=== PATIENT | female | born 1950 | race Caucasian/White ===

== ENCOUNTER 2017-12-10 05:31 | Observation (INO) | payer MEDICARE, OTHER ==
[~2017-12-10] VITALS: Ht 162.6 cm; Wt 99.5 kg
[~2017-12-10 05:31] MED LIST: ACET1TAB12 PO; BACL10TA PO; BUSP10TA3 PO; CeFAZolin 2 GM/DEXTROSE 0 ML IV ONE; DORZ1DRO5 OP; LISI-660 PO; LORA1TAB3 PO; METF500T7 PO; NPH,100V11 SQ; OLAN5TAB40 PO; PARO10TA71 PO; QUET25TA PO; RINGERS SOLUTION,LACTATED 1,000 ML IV ONE; SIMV-259 PO; TRAVZOS OP; TRIL4 PO; ZOLP5 PO
[2017-12-10 06:25] LABS: BASOPHILS % (AUTO) 0.5 % (0.0-2.0); EOSINOPHILS % (AUTO) 1.3 % (1.0-6.0); HEMATOCRIT 29.7 % (36-46); HEMOGLOBIN 10.1 g/dL (12.0-16.0); LYMPHOCYTES # (AUTO) 2.7 K/uL (1.0-4.8); LYMPHOCYTES % (AUTO) 32.7 % (22.0-44.0); MEAN CORPUSCULAR HEMOGLOBIN 31.8 pg (26.0-34.0); MEAN CORPUSCULAR HGB CONC 33.9 G/dL (31.0-37.0); MEAN CORPUSCULAR VOLUME 94 fL (80-100); MONOCYTES # (AUTO) 0.8 K/uL (0.1-1.0); MONOCYTES % (AUTO) 9.4 % (2.0-9.0); NEUTROPHILS # (AUTO) 4.6 K/uL (1.8-7.7); NEUTROPHILS % (AUTO) 56.1 % (40.0-70.0); PLATELET COUNT (AUTO) 230 K/uL (150-450); RED BLOOD CELL COUNT(AUTO) 3.18 MIL/uL (4.00-5.20); RED CELL DISTRIBUTION WIDTH 13.4 % (11.5-14.5)
[2017-12-10 06:35] LABS: ANION GAP 9 mmol/L (8-16); CALCIUM, TOTAL 8.4 mg/dL (8.8-10.5); CARBON DIOXIDE 31 mmol/L (22-29); CHLORIDE 104 mmol/L (98-107); CREATININE 0.65 mg/dL (0.60-1.30); GLOMERULAR FILTR. RATE CALC > 60 mL/min (>60); GLUCOSE,RANDOM 146 mg/dL (70-110); POTASSIUM 3.4 mmol/L (3.5-5.1); SODIUM SERUM 144 mmol/L (136-145); UREA NITROGEN, BLOOD 14 mg/dL (7-18)
[2017-12-10 06:37] LABS: PROTHROMBIN TIME 10.7 SEC (9.4-11.6)
[2017-12-10] MEDS ORDERED: GELATIN SPONGE,ABSORBABLE 50 MM TP ONE (06:41)
[2017-12-10] MEDS ORDERED: BUPIVACAINE HCL/PF 0.5% 30 ML VIAL ONE (06:41)
[2017-12-10] MEDS ORDERED: MUPIROCIN CALCIUM 2% 22 GM OINTMENT ONE (06:41)
[2017-12-10] MEDS ORDERED: VANCOMYCIN HCL 1 GM/VIAL ONE (06:41)
[2017-12-10] MEDS ORDERED: SODIUM CHLORIDE 0.9% IRRIG BAG 1,000 ML IRRIG ONE (06:42)
[2017-12-10] MEDS ORDERED: THROMBIN, BOVINE 20000 UNITS/VIAL POWDER TP ONE (06:42)
[2017-12-10] MEDS ORDERED: MICROFIBRILLAR COLLAGEN 1 GM PACKAGE TP ONE (06:42)
[2017-12-10] MEDS ORDERED: GUM MASTIC/STORAX/MSAL/ALCOHOL LIQUID 0.67 ML VIAL TP ONE (06:43)
[2017-12-10] MEDS ORDERED: RINGERS SOLUTION,LACTATED 1,000 ML IV ONE (06:45)
[2017-12-10] MEDS ORDERED: CeFAZolin 2 GM/DEXTROSE 50 ML IV ONE (06:45)
[2017-12-10] MEDS ORDERED: ACETAMINOPHEN 1000 MG/ISO-OSM 100 ML IV ONE ×2 (06:58→10:24)
[2017-12-10] MEDS ORDERED: BUPIVACAINE LIPOSOME/PF 1.3%-13.3MG/ML SUSPENSION 20 ML VIAL INJ ONE (07:00)
[2017-12-10] MEDS ORDERED: MEPERIDINE-PF 25 MG/ML SYRINGE IVP PRN (08:30)
[2017-12-10] MEDS: ACETAMINOPHEN 1000 MG/ISO-OSM 100 ML IV SCH ×3 (08:30→20:43)
[2017-12-10] MEDS ORDERED: FentaNYL CITRATE-PF 100 MCG/2 ML VIAL IVP PRN (08:30)
[2017-12-10] MEDS ORDERED: ONDANSETRON HCL 4 MG/2 ML VIAL IVP PRN (08:30)
[2017-12-10] MEDS: CYCLOBENZAPRINE HCL 10 MG TABLET PO SCH ×2 (09:00→21:10)
[2017-12-10] MEDS ORDERED: ALBUMIN HUMAN 25%-12.5GM/50ML 50 ML ONE (09:06)
[2017-12-10] MEDS: HYDROmorphone 2 MG/ML SYRINGE IVP PRN ×5 (10:20→18:33)
[2017-12-10 11:45] VITALS: BP 144/66
[2017-12-10] MEDS ORDERED: LORazepam 1 MG TABLET PO PRN (11:45)
[2017-12-10] MEDS ORDERED: 0.9% SODIUM CHLORIDE 10 ML VIAL IVP ONE (12:00)
[2017-12-10] MEDS ORDERED: FentaNYL CITRATE-PF 100 MCG/2 ML VIAL IVP ONE (12:00)
[2017-12-10] MEDS ORDERED: PHENYLEPHRINE HCL 10 MG/ML VIAL IVP ONE (12:00)
[2017-12-10] MEDS ORDERED: LIDOCAINE HCL/PF 2% 5 ML VIAL INJ ONE (12:00)
[2017-12-10] MEDS ORDERED: ROCURONIUM BROMIDE 10 MG/ML 5 ML VIAL IVP ONE (12:00)
[2017-12-10] MEDS ORDERED: MIDAZOLAM HCL 2 MG/2 ML VIAL IVP ONE (12:00)
[2017-12-10] MEDS ORDERED: NEOSTIGMINE METHYLSULFATE 1 MG/ML 10 ML VIAL IVP ONE (12:00)
[2017-12-10] MEDS ORDERED: PROPOFOL 1% 20 ML VIAL IVP ONE (12:00)
[2017-12-10] MEDS ORDERED: ONDANSETRON HCL 4 MG/2 ML VIAL IVP ONE (12:00)
[2017-12-10] MEDS ORDERED: GLYCOPYRROLATE 0.2 MG/ML VIAL IM ONE (12:00)
[2017-12-10] MEDS ORDERED: POTASSIUM CHLORIDE 20 MEQ ER TABLET PO PRN (12:30)
[2017-12-10] MEDS ORDERED: POTASSIUM CHL 10 MEQ/WATER 50 ML IV PRN (12:30)
[2017-12-10] MEDS ORDERED: SODIUM CHLORIDE 0.9% 500 ML IV ONE ×2 (14:18→14:21)
[2017-12-10] MEDS ORDERED: CeFAZolin 1 GM/DEXTROSE 50 ML IV SCH (15:30)
[2017-12-10] MEDS ORDERED: DORZOLAMIDE/TIMOLOL/PF 2-0.5% [22.3-6.8MG/ML] 0.2 ML OPHTHALMIC SOLUTION OU SCH (16:00)
[2017-12-10 16:18] VITALS: BP 130/54
[2017-12-10] MEDS: BACLOFEN 10 MG TABLET PO SCH ×2 (16:31→20:44)
[2017-12-10] MEDS: CeFAZolin SODIUM 1 GM in DEXTROSE 5%-WATER 10 ML IV SCH ×2 (16:31→23:42)
[2017-12-10] MEDS: BusPIRone HCL 10 MG TABLET PO SCH ×2 (16:31→20:44)
[2017-12-10 19:00] VITALS: BP 120/77
[2017-12-10] MEDS ORDERED: OXYGEN THERAPY IH SCH (20:00)
[2017-12-10] MEDS ORDERED: ZOLPIDEM TARTRATE 10 MG TABLET PO SCH (21:00)
[2017-12-10] MEDS ORDERED: SIMVASTATIN 20 MG TABLET PO SCH (21:00)
[2017-12-10] MEDS ORDERED: TRAVOPROST-Z 0.004% 2.5 ML OPHTHALMIC SOLUTION OU SCH (21:00)
[2017-12-10] MEDS ORDERED: OLANZapine 5 MG RAPDIS TABLET PO SCH (21:00)
[2017-12-10] MEDS ORDERED: QUEtiapine FUMARATE 25 MG TABLET PO SCH (21:00)
[2017-12-11] VITALS: BP 143/77
[2017-12-11] MEDS: ACETAMINOPHEN 1000 MG/ISO-OSM 100 ML IV SCH (03:39)
[2017-12-11 05:00] VITALS: BP 146/74
[2017-12-11 06:22] LABS: BASOPHILS % (AUTO) 0.1 % (0.0-2.0); EOSINOPHILS % (AUTO) 1.1 % (1.0-6.0); HEMATOCRIT 29.2 % (36-46); HEMOGLOBIN 9.9 g/dL (12.0-16.0); LYMPHOCYTES # (AUTO) 1.1 K/uL (1.0-4.8); LYMPHOCYTES % (AUTO) 14.6 % (22.0-44.0); MEAN CORPUSCULAR HEMOGLOBIN 31.9 pg (26.0-34.0); MEAN CORPUSCULAR HGB CONC 33.7 G/dL (31.0-37.0); MEAN CORPUSCULAR VOLUME 95 fL (80-100); MONOCYTES # (AUTO) 0.8 K/uL (0.1-1.0); MONOCYTES % (AUTO) 11.6 % (2.0-9.0); NEUTROPHILS # (AUTO) 5.3 K/uL (1.8-7.7); NEUTROPHILS % (AUTO) 72.6 % (40.0-70.0); PLATELET COUNT (AUTO) 199 K/uL (150-450); RED BLOOD CELL COUNT(AUTO) 3.08 MIL/uL (4.00-5.20); RED CELL DISTRIBUTION WIDTH 13.9 % (11.5-14.5)
[2017-12-11] MEDS ORDERED: PANTOPRAZOLE SODIUM 40 MG DR TABLET PO SCH (06:30)
[2017-12-11 07:21] LABS: CALCIUM, TOTAL 8.1 mg/dL (8.8-10.5); CREATININE 0.63 mg/dL (0.60-1.30); GLOMERULAR FILTR. RATE CALC > 60 mL/min (>60); GLUCOSE,RANDOM 200 mg/dL (70-110); UREA NITROGEN, BLOOD 13 mg/dL (7-18)
[2017-12-11 07:40] LABS: ANION GAP 10 mmol/L (8-16); CARBON DIOXIDE 29 mmol/L (22-29); CHLORIDE 104 mmol/L (98-107); POTASSIUM 3.9 mmol/L (3.5-5.1); SODIUM SERUM 143 mmol/L (136-145)
[2017-12-11 07:49] VITALS: BP 140/81
[2017-12-11] MEDS ORDERED: MetFORMIN HCL 500 MG ER TABLET PO SCH (08:00)
[2017-12-11] MEDS: BusPIRone HCL 10 MG TABLET PO SCH (08:58)
[2017-12-11] MEDS: BACLOFEN 10 MG TABLET PO SCH (08:59)
[2017-12-11] MEDS: CYCLOBENZAPRINE HCL 10 MG TABLET PO SCH (08:59)
[2017-12-11] MEDS ORDERED: PARoxetine HCL 20 MG TABLET PO SCH (09:00)
[2017-12-11] MEDS ORDERED: OxyCODONE HCL/ACETAMINOPHEN 5-325 MG TABLET PO PRN (09:00)
[2017-12-11] MEDS ORDERED: LISINOPRIL 5 MG TABLET PO SCH (09:00)
[2017-12-11 11:06] VITALS: BP 128/59
== END 2017-12-11 11:45 | disposition home or self-care (01) ==
LOC: SURGERY 05:31 → 4E 05:32
PROVIDERS: ADMIT Orthopaedic Surgery; ATTEND Orthopaedic Surgery
DX: S42.201A Unspecified fracture of upper end of right humerus, initial encounter for closed fracture (principal); S43.001A Unspecified subluxation of right shoulder joint, initial encounter; M75.101 Unspecified rotator cuff tear or rupture of right shoulder, not specified as traumatic; M25.011 Hemarthrosis, right shoulder; K21.9 Gastro-esophageal reflux disease without esophagitis; I10 Essential (primary) hypertension; E78.5 Hyperlipidemia, unspecified; E11.9 Type 2 diabetes mellitus without complications; D64.9 Anemia, unspecified; Z90.49 Acquired absence of other specified parts of digestive tract; W19.XXXA Unspecified fall, initial encounter; Y93.89 Activity, other specified; Y92.89 Other specified places as the place of occurrence of the external cause; Y99.8 Other external cause status
CPT/HCPCS: 23040; 23410; 23615; 23660; 24495; 36415 ×2; 71045; 73030; 80048 ×2; 85025 ×2; 85610; 85730; 93005; 96374; 96375; 96376 ×2; 97167; C1713 ×3; C9290; G0378 ×2; G8984; G8985; J0131 ×2; J0690 ×2; J1170; J2250; J2370; J2405; J2704; J3010; J3370; J3490 ×4; J7040; J7060; J7120; P9047

== ENCOUNTER 2017-12-26 07:22 | Inpatient (IN) | payer MEDICARE, OTHER ==
[~2017-12-26] VITALS: Ht 162.6 cm; Wt 91.9 kg
[~2017-12-26 07:22] MED LIST changes: -CeFAZolin 2 GM/DEXTROSE 0 ML IV ONE; -NPH,100V11 SQ; -RINGERS SOLUTION,LACTATED 1,000 ML IV ONE
[2017-12-26 07:48] LABS: GLUCOSE,POINT OF CARE 202 MG/DL (70-110)
[2017-12-26] MEDS ORDERED: MUPIROCIN CALCIUM 2% 22 GM OINTMENT TP ONE (08:15)
[2017-12-26] MEDS ORDERED: ZINC OXIDE 20% 30 GM OINTMENT TP ONE (08:15)
[2017-12-26] MEDS ORDERED: ONDANSETRON HCL 4 MG/2 ML VIAL IVP ONE (08:30)
[2017-12-26] MEDS ORDERED: MORPHINE SULFATE 4 MG/ML SYRINGE IVP ONE (08:30)
[2017-12-26 09:14] LABS: BASOPHILS % (AUTO) 0.5 % (0.0-2.0); EOSINOPHILS % (AUTO) 0.1 % (1.0-6.0); HEMATOCRIT 27.4 % (36-46); HEMOGLOBIN 9.1 g/dL (12.0-16.0); LYMPHOCYTES # (AUTO) 1.6 K/uL (1.0-4.8); LYMPHOCYTES % (AUTO) 32.3 % (22.0-44.0); MEAN CORPUSCULAR HEMOGLOBIN 30.6 pg (26.0-34.0); MEAN CORPUSCULAR HGB CONC 33.3 G/dL (31.0-37.0); MEAN CORPUSCULAR VOLUME 92 fL (80-100); MONOCYTES % (AUTO) 19.5 % (2.0-9.0); NEUTROPHILS # (AUTO) 2.4 K/uL (1.8-7.7); NEUTROPHILS % (AUTO) 47.6 % (40.0-70.0); PLATELET COUNT (AUTO) 270 K/uL (150-450); RED BLOOD CELL COUNT(AUTO) 2.99 MIL/uL (4.00-5.20); RED CELL DISTRIBUTION WIDTH 14.4 % (11.5-14.5)
[2017-12-26 09:31] LABS: ANION GAP 10 mmol/L (8-16); CALCIUM, TOTAL 7.4 mg/dL (8.8-10.5); CARBON DIOXIDE 28 mmol/L (22-29); CHLORIDE 105 mmol/L (98-107); CREATININE 0.73 mg/dL (0.60-1.30); GLOMERULAR FILTR. RATE CALC > 60 mL/min (>60); POTASSIUM 3.6 mmol/L (3.5-5.1); SODIUM SERUM 143 mmol/L (136-145); UREA NITROGEN, BLOOD 12 mg/dL (7-18)
[2017-12-26 09:35] LABS: B-TYPE NATRIURETIC PEPTIDE 73 pg/mL (0-100)
[2017-12-26 10:03] LABS: ALANINE AMINOTRANSFERASE 9 U/L (12-78); ALBUMIN 2.2 g/dL (3.4-5.0); ALKALINE PHOSPHATASE 105 U/L (46-116); ASPARTATE AMINOTRANSFERASE 14 U/L (15-37); BILIRUBIN,TOTAL 0.3 mg/dL (0.1-1.0); CREATINE KINASE MB 0.5 ng/mL (0-5); CREATINE KINASE, TOTAL 148 U/L (26-192); GLUCOSE,RANDOM 203 mg/dL (70-110)
[2017-12-26] MEDS ORDERED: ACETAMINOPHEN 325 MG TABLET PO PRN (12:30)
[2017-12-26] MEDS ORDERED: MAGNESIUM HYDROXIDE SUSPENSION 30 ML UDCUP PO PRN (12:30)
[2017-12-26] MEDS ORDERED: DEXTROSE 50%-WATER 25 GM/50 ML SYRINGE IVP PRN (12:45)
[2017-12-26] MEDS ORDERED: FLUCONAZOLE 100 MG TABLET PO SCH (13:00)
[2017-12-26] MEDS: HEPARIN SODIUM,PORCINE 5,000 UNITS/ML VIAL SQ SCH (16:00)
[2017-12-26 16:38] VITALS: BP 116/60
[2017-12-26 18:43] LABS: GLUCOMETER DEV NAME(LOC) 6N 1E; GLUCOSE,POINT OF CARE 114 MG/DL (70-110)
[2017-12-26 19:41] VITALS: BP 138/60
[2017-12-26] MEDS: OxyCODONE HCL/ACETAMINOPHEN 5-325 MG TABLET PO PRN (20:22)
[2017-12-26] MEDS: DOCUSATE SODIUM 100 MG CAPSULE PO SCH ×2 (20:22→21:00)
[2017-12-26] MEDS: INSULIN ASPART 100 UNITS/ML SQ PRN (20:26)
[2017-12-26 22:03] LABS: GLUCOMETER DEV NAME(LOC) 6N 1E; GLUCOSE,POINT OF CARE 252 MG/DL (70-110)
[2017-12-26 23:36] VITALS: BP 126/54
[2017-12-27] MEDS: HEPARIN SODIUM,PORCINE 5,000 UNITS/ML VIAL SQ SCH ×3 (00:33→16:16)
[2017-12-27] MEDS: OxyCODONE HCL/ACETAMINOPHEN 5-325 MG TABLET PO PRN ×3 (00:39→20:25)
[2017-12-27 05:22] VITALS: BP 130/51
[2017-12-27 06:08] LABS: GLUCOMETER DEV NAME(LOC) 6N 1E; GLUCOSE,POINT OF CARE 113 MG/DL (70-110)
[2017-12-27 07:37] VITALS: BP 142/51
[2017-12-27] MEDS: DOCUSATE SODIUM 100 MG CAPSULE PO SCH ×2 (09:00→20:25)
[2017-12-27] MEDS: PANTOPRAZOLE SODIUM 40 MG DR TABLET PO SCH (09:24)
[2017-12-27 11:08] VITALS: BP 138/56
[2017-12-27] MEDS: INSULIN ASPART 100 UNITS/ML SQ PRN ×3 (12:24→20:26)
[2017-12-27 13:22] LABS: GLUCOMETER DEV NAME(LOC) 6N 2D; GLUCOSE,POINT OF CARE 283 MG/DL (70-110)
[2017-12-27 16:17] VITALS: BP 117/63
[2017-12-27 19:23] LABS: GLUCOMETER DEV NAME(LOC) 6N 1E; GLUCOSE,POINT OF CARE 174 MG/DL (70-110)
[2017-12-27 20:00] VITALS: BP 137/54
[2017-12-27] MEDS: TRAVOPROST-Z 0.004% 2.5 ML OPHTHALMIC SOLUTION OU SCH (22:58)
[2017-12-27 23:22] VITALS: BP 134/53
[2017-12-28] MEDS: HEPARIN SODIUM,PORCINE 5,000 UNITS/ML VIAL SQ SCH ×3 (00:18→15:05)
[2017-12-28] MEDS: OxyCODONE HCL/ACETAMINOPHEN 5-325 MG TABLET PO PRN ×5 (00:27→20:48)
[2017-12-28 00:43] LABS: GLUCOMETER DEV NAME(LOC) 6N 2D; GLUCOSE,POINT OF CARE 193 MG/DL (70-110)
[2017-12-28 04:55] VITALS: BP 137/89
[2017-12-28 06:38] LABS: GLUCOMETER DEV NAME(LOC) 6N 2D; GLUCOSE,POINT OF CARE 113 MG/DL (70-110)
[2017-12-28 07:20] VITALS: BP 146/69
[2017-12-28 07:47] LABS: BASOPHILS % (AUTO) 0.7 % (0.0-2.0); EOSINOPHILS % (AUTO) 1.3 % (1.0-6.0); HEMATOCRIT 28.1 % (36-46); HEMOGLOBIN 9.3 g/dL (12.0-16.0); LYMPHOCYTES % (AUTO) 37.8 % (22.0-44.0); MEAN CORPUSCULAR HEMOGLOBIN 30.1 pg (26.0-34.0); MEAN CORPUSCULAR VOLUME 91 fL (80-100); MONOCYTES # (AUTO) 0.8 K/uL (0.1-1.0); MONOCYTES % (AUTO) 15.6 % (2.0-9.0); NEUTROPHILS # (AUTO) 2.3 K/uL (1.8-7.7); NEUTROPHILS % (AUTO) 44.6 % (40.0-70.0); PLATELET COUNT (AUTO) 262 K/uL (150-450); RED BLOOD CELL COUNT(AUTO) 3.08 MIL/uL (4.00-5.20); RED CELL DISTRIBUTION WIDTH 14.3 % (11.5-14.5)
[2017-12-28 07:57] LABS: ANION GAP 9 mmol/L (8-16); CALCIUM, TOTAL 7.5 mg/dL (8.8-10.5); CARBON DIOXIDE 28 mmol/L (22-29); CHLORIDE 103 mmol/L (98-107); CREATININE 0.56 mg/dL (0.60-1.30); GLOMERULAR FILTR. RATE CALC > 60 mL/min (>60); GLUCOSE,RANDOM 131 mg/dL (70-110); POTASSIUM 3.3 mmol/L (3.5-5.1); SODIUM SERUM 140 mmol/L (136-145); UREA NITROGEN, BLOOD 8 mg/dL (7-18)
[2017-12-28] MEDS: PANTOPRAZOLE SODIUM 40 MG DR TABLET PO SCH (08:13)
[2017-12-28] MEDS: DOCUSATE SODIUM 100 MG CAPSULE PO SCH ×2 (08:13→20:48)
[2017-12-28] MEDS: INSULIN ASPART 100 UNITS/ML SQ PRN ×3 (11:29→21:46)
[2017-12-28 11:43] LABS: GLUCOMETER DEV NAME(LOC) 6N 2D; GLUCOSE,POINT OF CARE 196 MG/DL (70-110)
[2017-12-28 11:44] VITALS: BP 151/65
[2017-12-28] MEDS ORDERED: POTASSIUM CHLORIDE 20 MEQ ER TABLET PO ONE (13:30)
[2017-12-28 15:22] VITALS: BP 150/65
[2017-12-28 17:18] LABS: GLUCOMETER DEV NAME(LOC) 6N 1E; GLUCOSE,POINT OF CARE 152 MG/DL (70-110)
[2017-12-28 19:36] VITALS: BP 125/59
[2017-12-28] MEDS: TRAVOPROST-Z 0.004% 2.5 ML OPHTHALMIC SOLUTION OU SCH (20:48)
[2017-12-28 23:50] VITALS: BP 128/65
[2017-12-29 00:33] LABS: GLUCOMETER DEV NAME(LOC) 6N 1E; GLUCOSE,POINT OF CARE 238 MG/DL (70-110)
[2017-12-29] MEDS: HEPARIN SODIUM,PORCINE 5,000 UNITS/ML VIAL SQ SCH ×4 (00:57→23:21)
[2017-12-29 04:52] VITALS: BP 155/68
[2017-12-29] MEDS: INSULIN ASPART 100 UNITS/ML SQ PRN ×4 (06:45→21:07)
[2017-12-29 07:08] VITALS: BP 153/75
[2017-12-29 07:23] LABS: GLUCOMETER DEV NAME(LOC) 6N 1E; GLUCOSE,POINT OF CARE 163 MG/DL (70-110)
[2017-12-29] MEDS: PANTOPRAZOLE SODIUM 40 MG DR TABLET PO SCH (08:42)
[2017-12-29] MEDS: DOCUSATE SODIUM 100 MG CAPSULE PO SCH ×2 (08:43→20:34)
[2017-12-29] MEDS: OxyCODONE HCL/ACETAMINOPHEN 5-325 MG TABLET PO PRN ×4 (08:47→20:40)
[2017-12-29 11:23] LABS: GLUCOMETER DEV NAME(LOC) 6N 1E; GLUCOSE,POINT OF CARE 195 MG/DL (70-110)
[2017-12-29 11:34] VITALS: BP 130/47
[2017-12-29 15:46] VITALS: BP 129/75
[2017-12-29 17:43] LABS: GLUCOMETER DEV NAME(LOC) 6N 1E; GLUCOSE,POINT OF CARE 169 MG/DL (70-110)
[2017-12-29 19:30] VITALS: BP 148/79
[2017-12-29] MEDS: TRAVOPROST-Z 0.004% 2.5 ML OPHTHALMIC SOLUTION OU SCH (20:35)
[2017-12-29 21:08] LABS: GLUCOMETER DEV NAME(LOC) 6N 1E; GLUCOSE,POINT OF CARE 202 MG/DL (70-110)
[2017-12-29 23:27] VITALS: BP 153/63
[2017-12-30 05:17] VITALS: BP 155/79
[2017-12-30 06:34] LABS: GLUCOMETER DEV NAME(LOC) 6N 2D; GLUCOSE,POINT OF CARE 137 MG/DL (70-110)
[2017-12-30 07:30] VITALS: BP 162/97
[2017-12-30] MEDS: HEPARIN SODIUM,PORCINE 5,000 UNITS/ML VIAL SQ SCH ×2 (09:54→16:00)
[2017-12-30] MEDS: PANTOPRAZOLE SODIUM 40 MG DR TABLET PO SCH (09:55)
[2017-12-30] MEDS: DOCUSATE SODIUM 100 MG CAPSULE PO SCH (09:55)
[2017-12-30] MEDS: OxyCODONE HCL/ACETAMINOPHEN 5-325 MG TABLET PO PRN (09:55)
[2017-12-30] MEDS: INSULIN ASPART 100 UNITS/ML SQ PRN ×2 (11:51→17:29)
[2017-12-30 15:31] VITALS: BP 150/80
[2017-12-30 19:42] LABS: GLUCOMETER DEV NAME(LOC) 6N 2D; GLUCOSE,POINT OF CARE 233 MG/DL (70-110)
[2017-12-30 19:42] LABS: GLUCOMETER DEV NAME(LOC) 6N 2D; GLUCOSE,POINT OF CARE 229 MG/DL (70-110)
== END 2017-12-30 17:40 | disposition home or self-care (01) | DRG 596 ==
LOC: EMS 07:26 → 5S 14:20 → UNDOADMIN 14:20 → 6N 15:23
PROVIDERS: ADMIT Internal Medicine; ATTEND Internal Medicine
PROC: 0HB7XZX Excision of Abdomen Skin, External Approach, Diagnostic (ICD-10-PCS; principal; 2017-12-26)
DX: L51.9 Erythema multiforme, unspecified (principal); E11.9 Type 2 diabetes mellitus without complications; L27.0 Generalized skin eruption due to drugs and medicaments taken internally; E66.9 Obesity, unspecified; I10 Essential (primary) hypertension; Z83.3 Family history of diabetes mellitus; Z88.2 Allergy status to sulfonamides; Z68.34 Body mass index [BMI] 34.0-34.9, adult; T37.0X5A Adverse effect of sulfonamides, initial encounter
CPT/HCPCS: 82784; 82962; 87081; 88305; 88331; 93005; 96374; 96375; 97110; 97116; 97162; 97165; 97530; 97535; 99285; J1644; J2270; J2405

== ENCOUNTER 2018-02-16 07:14 | Emergency (ER) | payer MEDICARE, OTHER ==
[~2018-02-16] VITALS: Ht 162.6 cm; Wt 86.4 kg
[~2018-02-16 07:14] MED LIST changes: -BACL10TA PO; -BUSP10TA3 PO; -DORZ1DRO5 OP; -LORA1TAB3 PO; -OLAN5TAB40 PO; -PARO10TA71 PO; -QUET25TA PO; -TRIL4 PO; -ZOLP5 PO
[2018-02-16 07:26] LABS: GLUCOSE,POINT OF CARE 164 MG/DL (70-110)
[2018-02-16] MEDS ORDERED: ALPRAZolam 0.25 MG TABLET PO ONE (08:30)
[2018-02-16 09:20] VITALS: BP 164/73
== END 2018-02-16 10:22 | disposition home or self-care (01) ==
LOC: EMS 07:14
DX: R25.1 Tremor, unspecified (principal); E11.9 Type 2 diabetes mellitus without complications; I10 Essential (primary) hypertension; Z88.2 Allergy status to sulfonamides; Z88.8 Allergy status to other drugs, medicaments and biological substances
CPT/HCPCS: 82962; 99283

== ENCOUNTER 2018-04-23 10:21 | Emergency (ER) | payer MEDICARE, OTHER ==
[~2018-04-23] VITALS: Ht 162.6 cm; Wt 77.7 kg
[2018-04-23] MEDS ORDERED: OMEP20 PO (10:32)
[2018-04-23] MEDS ORDERED: LORA0.5T2 PO (10:32)
[2018-04-23] MEDS ORDERED: PARO20TA24 PO (10:32)
[2018-04-23] MEDS ORDERED: FERR-89 PO (10:32)
[2018-04-23] MEDS ORDERED: GABA-531 PO (10:32)
[2018-04-23] MEDS ORDERED: GLIP5 PO (10:32)
[2018-04-23] MEDS ORDERED: ATEN50TA PO (10:32)
[2018-04-23 10:39] LABS: GLUCOSE,POINT OF CARE 121 MG/DL (70-110)
[2018-04-23] MEDS ORDERED: ACETAMINOPHEN 325 MG TABLET PO ONE (11:00)
[2018-04-23 11:21] LABS: BASOPHILS % (AUTO) 0.5 % (0.0-2.0); HEMATOCRIT 34.3 % (36-46); HEMOGLOBIN 11.5 g/dL (12.0-16.0); LYMPHOCYTES # (AUTO) 2.7 K/uL (1.0-4.8); LYMPHOCYTES % (AUTO) 35.7 % (22.0-44.0); MEAN CORPUSCULAR HEMOGLOBIN 29.6 pg (26.0-34.0); MEAN CORPUSCULAR HGB CONC 33.4 G/dL (31.0-37.0); MEAN CORPUSCULAR VOLUME 89 fL (80-100); MONOCYTES # (AUTO) 0.6 K/uL (0.1-1.0); MONOCYTES % (AUTO) 8.6 % (2.0-9.0); NEUTROPHILS % (AUTO) 53.2 % (40.0-70.0); PLATELET COUNT (AUTO) 211 K/uL (150-450); RED BLOOD CELL COUNT(AUTO) 3.87 MIL/uL (4.00-5.20)
[2018-04-23 11:32] LABS: ANION GAP 4 mmol/L (8-16); CALCIUM, TOTAL 7.3 mg/dL (8.8-10.5); CARBON DIOXIDE 30 mmol/L (22-29); CHLORIDE 104 mmol/L (98-107); CREATININE 0.67 mg/dL (0.60-1.30); GLOMERULAR FILTR. RATE CALC > 60 mL/min (>60); GLUCOSE,RANDOM 128 mg/dL (70-110); POTASSIUM 3.6 mmol/L (3.5-5.1); SODIUM SERUM 138 mmol/L (136-145); UREA NITROGEN, BLOOD 8 mg/dL (7-18)
[2018-04-23 11:39] LABS: ALANINE AMINOTRANSFERASE 14 U/L (12-78); ALKALINE PHOSPHATASE 89 U/L (46-116); ASPARTATE AMINOTRANSFERASE 11 U/L (15-37); BILIRUBIN,TOTAL 0.2 mg/dL (0.1-1.0); LIPASE 138 U/L (73-393); TOTAL PROTEIN, SERUM 6.5 g/dL (6.4-8.2)
[2018-04-23 11:46] VITALS: BP 143/67
== END 2018-04-23 12:15 | disposition home or self-care (01) ==
LOC: EMS 10:23
DX: R10.13 Epigastric pain (principal); M25.511 Pain in right shoulder; R07.9 Chest pain, unspecified; E11.9 Type 2 diabetes mellitus without complications; I10 Essential (primary) hypertension; Z88.2 Allergy status to sulfonamides; Z88.1 Allergy status to other antibiotic agents
CPT/HCPCS: 93005; 99285

== ENCOUNTER → 2018-11-10 | Outpatient (CLI) | payer MEDICARE, OTHER ==
[~2018-11-10] MED LIST changes: -ACET1TAB12 PO; +ATEN50TA PO; +FERR-89 PO; +GABA-531 PO; +GLIP5 PO; +IOVERSOL 350 MG/ML 100 ML VIAL ONE; -LISI-660 PO; +LORA0.5T2 PO; +OMEP20 PO; +PARO20TA24 PO
== END | disposition home or self-care (01) ==
LOC: RADMN 07:59
PROVIDERS: ATTEND Internal Medicine Geriatric Medicine
DX: K44.9 Diaphragmatic hernia without obstruction or gangrene (principal); R22.9 Localized swelling, mass and lump, unspecified
CPT/HCPCS: 74177; Q9967

== ENCOUNTER 2018-12-27 14:50 | Emergency (ER) | payer MEDICARE, OTHER ==
[~2018-12-27] VITALS: Ht 162.6 cm; Wt 68.2 kg
[~2018-12-27 14:50] MED LIST changes: -IOVERSOL 350 MG/ML 100 ML VIAL ONE; -TRAVZOS OP; +TRAVZOS OU
[2018-12-27 15:09] LABS: GLUCOSE,POINT OF CARE 98 MG/DL (70-110)
[2018-12-27 15:30] LABS: BASOPHILS % (AUTO) 0.5 % (0.0-2.0); EOSINOPHILS % (AUTO) 1.5 % (1.0-6.0); HEMATOCRIT 36.6 % (36-46); HEMOGLOBIN 12.4 g/dL (12.0-16.0); LYMPHOCYTES # (AUTO) 2.4 K/uL (1.0-4.8); LYMPHOCYTES % (AUTO) 42.3 % (22.0-44.0); MEAN CORPUSCULAR HEMOGLOBIN 31.7 pg (26.0-34.0); MEAN CORPUSCULAR VOLUME 93 fL (80-100); MONOCYTES # (AUTO) 0.6 K/uL (0.1-1.0); MONOCYTES % (AUTO) 10.1 % (2.0-9.0); NEUTROPHILS # (AUTO) 2.6 K/uL (1.8-7.7); NEUTROPHILS % (AUTO) 45.6 % (40.0-70.0); PLATELET COUNT (AUTO) 177 K/uL (150-450); RED BLOOD CELL COUNT(AUTO) 3.92 MIL/uL (4.00-5.20); RED CELL DISTRIBUTION WIDTH 13.1 % (11.5-14.5)
[2018-12-27] MEDS ORDERED: SPIR25 PO (15:53)
[2018-12-27] MEDS ORDERED: DULA0.75 PO (15:53)
[2018-12-27] MEDS ORDERED: CLOP75TA3 PO (15:53)
[2018-12-27] MEDS ORDERED: LOSA50TA64 PO (15:53)
[2018-12-27] MEDS ORDERED: CARV3 PO (15:53)
[2018-12-27] MEDS ORDERED: ATOR20TA86 PO (15:53)
[2018-12-27 16:14] LABS: ANION GAP 10 mmol/L (8-16); CALCIUM, TOTAL 9.1 mg/dL (8.8-10.5); CARBON DIOXIDE 28 mmol/L (22-29); CHLORIDE 101 mmol/L (98-107); CREATININE 0.53 mg/dL (0.60-1.30); GLOMERULAR FILTR. RATE CALC > 60 mL/min (>60); GLUCOSE,RANDOM 114 mg/dL (70-110); POTASSIUM 3.7 mmol/L (3.5-5.1); SODIUM SERUM 139 mmol/L (136-145); UREA NITROGEN, BLOOD 14 mg/dL (7-18)
[2018-12-27 16:20] LABS: ALANINE AMINOTRANSFERASE 14 U/L (12-78); ALBUMIN 3.1 g/dL (3.4-5.0); ALKALINE PHOSPHATASE 88 U/L (46-116); ASPARTATE AMINOTRANSFERASE 15 U/L (15-37); BILIRUBIN,TOTAL 0.3 mg/dL (0.1-1.0); TOTAL PROTEIN, SERUM 6.6 g/dL (6.4-8.2)
[2018-12-27] MEDS ORDERED: ASPIRIN 81 MG CHEWABLE TABLET PO ONE (18:00)
[2018-12-27] MEDS ORDERED: LORazepam 1 MG TABLET PO ONE (18:00)
[2018-12-27 19:47] VITALS: BP 149/74
== END 2018-12-27 20:23 | disposition home or self-care (01) ==
LOC: EMS 14:51
DX: F41.9 Anxiety disorder, unspecified (principal); R07.9 Chest pain, unspecified; F32.9 Major depressive disorder, single episode, unspecified; E11.9 Type 2 diabetes mellitus without complications; I10 Essential (primary) hypertension; Z90.49 Acquired absence of other specified parts of digestive tract; Z79.84 Long term (current) use of oral hypoglycemic drugs; Z88.2 Allergy status to sulfonamides; Z88.1 Allergy status to other antibiotic agents
CPT/HCPCS: 93005

== ENCOUNTER → 2019-04-14 | Outpatient (CLI) | payer MEDICARE, OTHER ==
[~2019-04-14] MED LIST changes: +ATOR20TA86 PO; +CARV3 PO; +CLOP75TA3 PO; +DULA0.75 PO; +LOSA50TA64 PO; -SIMV-259 PO; +SPIR25 PO
== END | disposition home or self-care (01) ==
LOC: RADPV 07:50
PROVIDERS: ATTEND Internal Medicine Geriatric Medicine
DX: J98.11 Atelectasis (principal); I70.0 Atherosclerosis of aorta

== ENCOUNTER 2019-07-28 07:30 | Inpatient (IN) | payer MEDICARE, OTHER ==
[~2019-07-28] VITALS: Ht 162.6 cm; Wt 62.9 kg
[~2019-07-28 07:30] MED LIST changes: +LORA-999 PO; -LORA0.5T2 PO; +METF500T20 PO; -METF500T7 PO
[2019-07-28] MEDS ORDERED: DEXTROSE 50%-WATER 25 GM/50 ML SYRINGE IVP ONE ×3 (07:40→12:22)
[2019-07-28 07:56] LABS: GLUCOSE,POINT OF CARE < 10 MG/DL (70-110)
[2019-07-28 08:03] LABS: BASOPHILS % (AUTO) 0.4 % (0.0-2.0); EOSINOPHILS % (AUTO) 2.3 % (1.0-6.0); HEMATOCRIT 40.7 % (36-46); HEMOGLOBIN 13.9 g/dL (12.0-16.0); LYMPHOCYTES # (AUTO) 1.4 K/uL (1.0-4.8); LYMPHOCYTES % (AUTO) 30.3 % (22.0-44.0); MEAN CORPUSCULAR HEMOGLOBIN 32.6 pg (26.0-34.0); MEAN CORPUSCULAR HGB CONC 34.2 G/dL (31.0-37.0); MEAN CORPUSCULAR VOLUME 95 fL (80-100); MONOCYTES # (AUTO) 0.5 K/uL (0.1-1.0); MONOCYTES % (AUTO) 9.8 % (2.0-9.0); NEUTROPHILS # (AUTO) 2.7 K/uL (1.8-7.7); NEUTROPHILS % (AUTO) 57.2 % (40.0-70.0); PLATELET COUNT (AUTO) 172 K/uL (150-450); RED BLOOD CELL COUNT(AUTO) 4.27 MIL/uL (4.00-5.20)
[2019-07-28 08:12] LABS: ANION GAP 7 mmol/L (8-16); CALCIUM, TOTAL 9.2 mg/dL (8.8-10.5); CARBON DIOXIDE 32 mmol/L (22-29); CHLORIDE 104 mmol/L (98-107); CREATININE 0.66 mg/dL (0.60-1.30); GLOMERULAR FILTR. RATE CALC > 60 mL/min (>60); GLUCOSE,RANDOM 52 mg/dL (70-110); POTASSIUM 4.1 mmol/L (3.5-5.1); SODIUM SERUM 143 mmol/L (136-145); UREA NITROGEN, BLOOD 12 mg/dL (7-18)
[2019-07-28 08:14] LABS: INR 0.9 (0.9-1.1); PROTHROMBIN TIME 9.5 SEC (9.4-11.6)
[2019-07-28] MEDS ORDERED: DOXYCYCLINE HYCLATE 100 MG in DEXTROSE 5%-WATER 100 ML IV ONE (08:15)
[2019-07-28 08:19] LABS: ALANINE AMINOTRANSFERASE 12 U/L (12-78); ALBUMIN 3.9 g/dL (3.4-5.0); ALKALINE PHOSPHATASE 83 U/L (46-116); ASPARTATE AMINOTRANSFERASE 15 U/L (15-37); BILIRUBIN,TOTAL 0.3 mg/dL (0.1-1.0); CREATINE KINASE, TOTAL ONLY 38 U/L (26-192); TOTAL PROTEIN, SERUM 7.8 g/dL (6.4-8.2)
[2019-07-28 08:30] LABS: B-TYPE NATRIURETIC PEPTIDE 164 pg/mL (0-100)
[2019-07-28] MEDS ORDERED: LISI-661 PO (08:32)
[2019-07-28] MEDS ORDERED: QUET200T PO (08:32)
[2019-07-28] MEDS ORDERED: METO50 PO (08:32)
[2019-07-28] MEDS ORDERED: SIMV-260 PO (08:32)
[2019-07-28 08:36] LABS: GLUCOSE,POINT OF CARE 61 MG/DL (70-110)
[2019-07-28 08:36] LABS: GLUCOSE,POINT OF CARE 105 MG/DL (70-110)
[2019-07-28] MEDS ORDERED: LISINOPRIL 10 MG TABLET PO ONE (08:45)
[2019-07-28] MEDS ORDERED: SODIUM CHLORIDE 154 MEQ in DEXTROSE 10%-WATER 1,000 ML IV ONE (08:45)
[2019-07-28] MEDS ORDERED: METOPROLOL TARTRATE 50 MG TABLET PO ONE (08:45)
[2019-07-28] MEDS ORDERED: ACETAMINOPHEN 325 MG TABLET PO PRN (09:00)
[2019-07-28] MEDS ORDERED: ONDANSETRON HCL 4 MG/2 ML VIAL IVP PRN (09:00)
[2019-07-28] MEDS ORDERED: 0.9% SODIUM CHLORIDE 10 ML SYRINGE IVP PRN (09:00)
[2019-07-28 09:56] LABS: GLUCOSE,POINT OF CARE 120 MG/DL (70-110)
[2019-07-28] MEDS ORDERED: CloNIDine HCL 0.1 MG TABLET PO PRN (13:15)
[2019-07-28] MEDS ORDERED: LORazepam 2 MG/ML VIAL IVP PRN ×2 (13:15→19:15)
[2019-07-28] MEDS ORDERED: HydrALAZINE HCL 20 MG/ML VIAL IVP PRN (13:15)
[2019-07-28] MEDS ORDERED: DEXTROSE 5%-0.45% SODIUM CHL 1,000 ML IV ONE (13:15)
[2019-07-28] MEDS ORDERED: BISACODYL 10 MG RECTAL RECTAL SUPPOSITORY PR PRN (13:30)
[2019-07-28] MEDS ORDERED: MAGNESIUM HYDROXIDE SUSPENSION 30 ML UDCUP PO PRN (13:30)
[2019-07-28] MEDS ORDERED: ZOLPIDEM TARTRATE 5 MG TABLET PO PRN (13:30)
[2019-07-28 13:41] LABS: GLUCOSE,POINT OF CARE 93 MG/DL (70-110)
[2019-07-28 16:13] VITALS: BP 109/61
[2019-07-28] MEDS ORDERED: INFLUENZA VIRUS VACCINE QVS 2019-20 (3YR+)/PF 60 MCG/0.5 ML SYRINGE IM ONE (17:00)
[2019-07-28 19:45] VITALS: BP 126/59
[2019-07-28] MEDS: SIMVASTATIN 20 MG TABLET PO SCH (20:39)
[2019-07-28] MEDS: GABAPENTIN 300 MG CAPSULE PO SCH (20:39)
[2019-07-28] MEDS: QUEtiapine FUMARATE 200 MG TABLET PO SCH (20:39)
[2019-07-28] MEDS: METOPROLOL TARTRATE 50 MG TABLET PO SCH (20:40)
[2019-07-28 23:31] VITALS: BP 128/53
[2019-07-29 04:14] VITALS: BP 106/56
[2019-07-29 04:31] LABS: GLUCOMETER DEV NAME(LOC) 5S.1; GLUCOSE,POINT OF CARE 198 MG/DL (70-110)
[2019-07-29 04:31] LABS: GLUCOMETER DEV NAME(LOC) 5S.1; GLUCOSE,POINT OF CARE 189 MG/DL (70-110)
[2019-07-29 06:35] LABS: BASOPHILS % (AUTO) 0.3 % (0.0-2.0); EOSINOPHILS % (AUTO) 1.9 % (1.0-6.0); HEMATOCRIT 37.2 % (36-46); HEMOGLOBIN 12.5 g/dL (12.0-16.0); LYMPHOCYTES # (AUTO) 2.6 K/uL (1.0-4.8); LYMPHOCYTES % (AUTO) 44.8 % (22.0-44.0); MEAN CORPUSCULAR HEMOGLOBIN 32.1 pg (26.0-34.0); MEAN CORPUSCULAR HGB CONC 33.5 G/dL (31.0-37.0); MEAN CORPUSCULAR VOLUME 96 fL (80-100); MONOCYTES # (AUTO) 0.7 K/uL (0.1-1.0); MONOCYTES % (AUTO) 11.8 % (2.0-9.0); NEUTROPHILS # (AUTO) 2.4 K/uL (1.8-7.7); NEUTROPHILS % (AUTO) 41.2 % (40.0-70.0); PLATELET COUNT (AUTO) 168 K/uL (150-450); RED BLOOD CELL COUNT(AUTO) 3.89 MIL/uL (4.00-5.20); RED CELL DISTRIBUTION WIDTH 13.2 % (11.5-14.5)
[2019-07-29 06:53] LABS: HEMOGLOBIN A1C 5.7 % (4.5-6.2)
[2019-07-29 07:01] LABS: ANION GAP 6 mmol/L (8-16); CARBON DIOXIDE 30 mmol/L (22-29); CHLORIDE 103 mmol/L (98-107); CHOL/HDL RATIO 3.1 (3.9-5.7); CHOLESTEROL 150 mg/dL (131-200); CREATINE KINASE, TOTAL ONLY 26 U/L (26-192); CREATININE 0.65 mg/dL (0.60-1.30); FREE T4 (FREE THYROXINE) 0.85 ng/dL (0.76-1.46); GLOMERULAR FILTR. RATE CALC > 60 mL/min (>60); GLUCOSE,RANDOM 144 mg/dL (70-110); HDL CHOLESTEROL 49 mg/dL (40-60); LDL CHOL (CALC.) 85 mg/dL (0-130); POTASSIUM 3.9 mmol/L (3.5-5.1); SODIUM SERUM 139 mmol/L (136-145); THYROID STIMULATING HORMONE 2.02 uIU/mL (0.36-3.74); TRIGLYCERIDES 78 mg/dL (15-150); UREA NITROGEN, BLOOD 11 mg/dL (7-18)
[2019-07-29 07:35] VITALS: BP 157/81
[2019-07-29] MEDS: LISINOPRIL 10 MG TABLET PO SCH (08:10)
[2019-07-29] MEDS: PARoxetine HCL 20 MG TABLET PO SCH (08:10)
[2019-07-29] MEDS: OMEPRAZOLE 20 MG CAPSULE PO SCH (08:10)
[2019-07-29] MEDS: ENOXAPARIN SODIUM 40 MG/0.4 ML PF SYRINGE SQ SCH (08:10)
[2019-07-29] MEDS: METOPROLOL TARTRATE 50 MG TABLET PO SCH ×2 (08:10→21:29)
[2019-07-29 11:17] VITALS: BP 151/72
[2019-07-29 11:46] LABS: GLUCOMETER DEV NAME(LOC) 5N.1; GLUCOSE,POINT OF CARE 107 MG/DL (70-110)
[2019-07-29 11:47] LABS: GLUCOMETER DEV NAME(LOC) 5N.1; GLUCOSE,POINT OF CARE 193 MG/DL (70-110)
[2019-07-29 11:47] LABS: GLUCOMETER DEV NAME(LOC) 5N.1; GLUCOSE,POINT OF CARE 184 MG/DL (70-110)
[2019-07-29] MEDS: AmLODIPine BESYLATE 2.5 MG TABLET PO SCH (11:58)
[2019-07-29] MEDS ORDERED: MAGNESIUM OXIDE 400 MG TABLET PO PRN (12:00)
[2019-07-29] MEDS ORDERED: MAGNESIUM SULFATE 4 GM/WATER 100 ML IV PRN (12:00)
[2019-07-29] MEDS ORDERED: LORazepam 0.5 MG TABLET PO PRN (12:00)
[2019-07-29 12:41] LABS: ALBUMIN 3.3 g/dL (3.4-5.0)
[2019-07-29] MEDS: MAGNESIUM SULFATE 2 GM/WATER 50 ML IV PRN (14:33)
[2019-07-29 15:27] VITALS: BP 169/77
[2019-07-29 18:06] LABS: GLUCOMETER DEV NAME(LOC) 5S.1; GLUCOSE,POINT OF CARE 192 MG/DL (70-110)
[2019-07-29 18:06] LABS: GLUCOMETER DEV NAME(LOC) 5S.1; GLUCOSE,POINT OF CARE 213 MG/DL (70-110)
[2019-07-29 18:08] VITALS: BP 144/85
[2019-07-29 20:31] VITALS: BP 119/61
[2019-07-29] MEDS: SIMVASTATIN 20 MG TABLET PO SCH (21:29)
[2019-07-29] MEDS: GABAPENTIN 300 MG CAPSULE PO SCH (21:29)
[2019-07-29] MEDS: QUEtiapine FUMARATE 200 MG TABLET PO SCH (21:54)
[2019-07-30 00:54] VITALS: BP 108/49
[2019-07-30 04:31] VITALS: BP 135/62
[2019-07-30 05:56] LABS: GLUCOMETER DEV NAME(LOC) 5N.1; GLUCOSE,POINT OF CARE 87 MG/DL (70-110)
[2019-07-30 05:56] LABS: GLUCOMETER DEV NAME(LOC) 5N.1; GLUCOSE,POINT OF CARE 114 MG/DL (70-110)
[2019-07-30 06:15] LABS: BASOPHILS % (AUTO) 0.4 % (0.0-2.0); EOSINOPHILS % (AUTO) 3.7 % (1.0-6.0); HEMATOCRIT 34.8 % (36-46); HEMOGLOBIN 11.9 g/dL (12.0-16.0); LYMPHOCYTES # (AUTO) 2.7 K/uL (1.0-4.8); LYMPHOCYTES % (AUTO) 49.4 % (22.0-44.0); MEAN CORPUSCULAR HEMOGLOBIN 32.6 pg (26.0-34.0); MEAN CORPUSCULAR HGB CONC 34.2 G/dL (31.0-37.0); MEAN CORPUSCULAR VOLUME 95 fL (80-100); MONOCYTES # (AUTO) 0.6 K/uL (0.1-1.0); MONOCYTES % (AUTO) 10.5 % (2.0-9.0); PLATELET COUNT (AUTO) 162 K/uL (150-450); RED BLOOD CELL COUNT(AUTO) 3.65 MIL/uL (4.00-5.20); RED CELL DISTRIBUTION WIDTH 12.8 % (11.5-14.5)
[2019-07-30 06:27] LABS: ANION GAP 9 mmol/L (8-16); CALCIUM, TOTAL 9.1 mg/dL (8.8-10.5); CARBON DIOXIDE 30 mmol/L (22-29); CHLORIDE 99 mmol/L (98-107); GLOMERULAR FILTR. RATE CALC > 60 mL/min (>60); GLUCOSE,RANDOM 115 mg/dL (70-110); POTASSIUM 4.3 mmol/L (3.5-5.1); SODIUM SERUM 138 mmol/L (136-145); UREA NITROGEN, BLOOD 20 mg/dL (7-18)
[2019-07-30 07:30] VITALS: BP 139/65
[2019-07-30 08:32] LABS: GLUCOMETER DEV NAME(LOC) 5S.2A; GLUCOSE,POINT OF CARE 144 MG/DL (70-110)
[2019-07-30] MEDS: OMEPRAZOLE 20 MG CAPSULE PO SCH (09:01)
[2019-07-30] MEDS: LISINOPRIL 10 MG TABLET PO SCH (09:01)
[2019-07-30] MEDS: PARoxetine HCL 20 MG TABLET PO SCH (09:01)
[2019-07-30] MEDS: AmLODIPine BESYLATE 2.5 MG TABLET PO SCH (09:01)
[2019-07-30] MEDS: ENOXAPARIN SODIUM 40 MG/0.4 ML PF SYRINGE SQ SCH (09:02)
[2019-07-30] MEDS: METOPROLOL TARTRATE 50 MG TABLET PO SCH (09:02)
[2019-07-30] MEDS: MAGNESIUM SULFATE 2 GM/WATER 50 ML IV PRN (09:39)
[2019-07-30 10:59] VITALS: BP 150/71
[2019-07-30 16:56] LABS: GLUCOMETER DEV NAME(LOC) 5N.1; GLUCOSE,POINT OF CARE 106 MG/DL (70-110)
== END 2019-07-30 12:55 | disposition home or self-care (01) | DRG 637 ==
LOC: EMS 07:31 → 5N 14:05 → 5S 07-29 16:45
PROVIDERS: ADMIT Internal Medicine Geriatric Medicine; ATTEND Internal Medicine Geriatric Medicine
PROC: 3E0234Z Introduction of Serum, Toxoid and Vaccine into Muscle, Percutaneous Approach (ICD-10-PCS; principal; 2019-07-28)
DX: E11.649 Type 2 diabetes mellitus with hypoglycemia without coma (principal); G93.41 Metabolic encephalopathy; E46 Unspecified protein-calorie malnutrition; T38.3X5A Adverse effect of insulin and oral hypoglycemic [antidiabetic] drugs, initial encounter; I10 Essential (primary) hypertension; E78.5 Hyperlipidemia, unspecified; E11.40 Type 2 diabetes mellitus with diabetic neuropathy, unspecified; D64.9 Anemia, unspecified; E83.42 Hypomagnesemia; E87.6 Hypokalemia; F25.9 Schizoaffective disorder, unspecified; F32.9 Major depressive disorder, single episode, unspecified; F41.9 Anxiety disorder, unspecified; K21.9 Gastro-esophageal reflux disease without esophagitis; Z88.2 Allergy status to sulfonamides; Z88.8 Allergy status to other drugs, medicaments and biological substances; Z23 Encounter for immunization; Z79.899 Other long term (current) drug therapy; Z79.82 Long term (current) use of aspirin; Z68.23 Body mass index [BMI] 23.0-23.9, adult
CPT/HCPCS: 83036; 83735; 84439; 84443; 90686; 93005; 96374; J0360; J1650; J2060; J3475; J3490; J7060; J7131

== ENCOUNTER → 2020-01-07 | Outpatient (CLI) | payer MEDICARE, OTHER ==
[~2020-01-07] MED LIST changes: -ATEN50TA PO; -ATOR20TA86 PO; -CARV3 PO; -CLOP75TA3 PO; -DULA0.75 PO; -GLIP5 PO; +LISI-661 PO; -LOSA50TA64 PO; -METF500T20 PO; +METO50 PO; +QUET200T PO; +SIMV-260 PO; -SPIR25 PO; -TRAVZOS OU
== END | disposition home or self-care (01) ==
LOC: RADPV 08:03
PROVIDERS: ATTEND Internal Medicine Geriatric Medicine
DX: M19.011 Primary osteoarthritis, right shoulder (principal); M25.811 Other specified joint disorders, right shoulder